=== PATIENT | male | born 1955 | race Caucasian/White ===

== ENCOUNTER → 2024-11-28 | Outpatient (CLI) | payer MEDICARE, BC ==
--- NOTE | 2024-11-28 13:53 | CT ---
EXAMINATION TYPE: CT lumbar spine wo con CT DLP: 834 mGycm, Automated exposure control for dose reduction was used. DATE OF EXAM: 11/28/2024 11:23 AM COMPARISON: None. CLINICAL INDICATION:Male, 69 years old with history of M54.51 VERTEBROGENIC LOW BACK PAIN; PHH, Verte brogenic, low back pain, pain TECHNIQUE: Multiple axial images were obtained from the midportion of T11 through the sacroiliac jin nts. Soft tissue and bone windows in coronal and sagittal planes were obtained and reviewed. Contrast used: none. Oral contrast used: none. FINDINGS: Alignment: There are 5 lumbar type vertebral bodies. No spondylolisthesis. Mild dextrocurvature of th e lumbar spine with apex at L3. Bone: No evidence of fracture is identified. Bilateral SI joint degenerative changes with vacuum dis ease. There is anterior osteophytosis bilaterally. Multilevel disc space narrowing with subchondral c ystic change, endplate sclerosis and anterior osteophytosis. Vacuum disc disease at L4-L5. Discs: T12-L1: No spinal canal or neural foraminal stenosis is identified. L1-L2: Minimal broad-based disc bulge without significant central canal stenosis. The neural foramina are patent bilaterally. L2-L3: Minimal broad base disc bulge without significant central canal stenosis. The right neural for amen is patent. Mild left neural foraminal stenosis. L3-L4: Broad-based disc bulge and bilateral facet uropathy resulting in mild central canal stenosis. Mild left and minimal right neural foraminal stenosis. L4-L5: Broad-based disc bulge with mild effacement of the anterior thecal sac. Mild central canal jewel nosis. Bilateral facet arthropathy. The left neural foramen is patent. Moderate right neural foramina l stenosis. L5-S1: Broad-based disc bulge without significant effacement of the anterior thecal sac. No central c anal stenosis. Bilateral facet arthropathy. Mild right neural foraminal stenosis. The left neural for amen is patent. Other: Renal upper pole 7.3 cm cyst with peripheral calcification. Mild atherosclerotic calcification of the aorta and its branches. IMPRESSION: 1. No evidence for spinal fracture. 2. Mild multilevel degenerative disc disease and facet arthropathy as described above. 3. Minimally complex right renal cyst. Consider further evaluation with renal ultrasound. [facility], , 11/28/2024 1:51 PM
== END | disposition home or self-care (01) ==
LOC: RADCTMAIN 10:53
PROVIDERS: ATTEND Physical Medicine & Rehabilitation
DX: M51.362 Other intervertebral disc degeneration, lumbar region with discogenic back pain and lower extremity pain (principal); M47.816 Spondylosis without myelopathy or radiculopathy, lumbar region; N28.1 Cyst of kidney, acquired; M41.86 Other forms of scoliosis, lumbar region
CPT/HCPCS: 72131